=== PATIENT | male | born 1940 | race Caucasian/White ===

== ENCOUNTER 2017-03-23 16:26 | Emergency (ER) | payer MEDICARE, OTHER ==
[2017-03-23 16:36] VITALS: TEMP 98
--- NOTE | 2017-03-23 17:20 | ED ---
Fall HPI - General Chief Complaint: Fall Stated Complaint: Fall Time Seen by Provider: 03/23/17 17:06 Source: patient, EMS, RN notes reviewed Mode of arrival: EMS - History of Present Illness Initial Comments: Patient is 76-year-old male presents to the emergency room for evaluation fall injury. Patient has a history of advanced ALS. Patient's and nephew are present with patient. Patient's states that she left the house and came home to the EMS at her house. Patient tried to walk into the garage and fell hitting his head. Patient's states they were told this by their neighbors. Patient denies loss of consciousness. Patient denies headache. Patient denies shoulder pain, arm pain, chest pain, back pain, abdominal pain, hip pain, knee pain, leg pain, ankle pain. Patient only has pain at the laceration site on the right posterior parietal scalp. Patient denies nausea or vomiting. Patient denies shortness of breath. Patient's states patient is not on any blood thinners. Patient's states that patient is up- to-date on his tetanus vaccine. - Related Data Home Medications Medication Instructions Recorded Confirmed Citalopram Hydrobromide [CeleXA] 20 mg PEG/G-TUBE DAILY 03/23/17 03/23/17 Osmolite 1.5 Darrin 1,540.5 ml PEG/G-TUBE HS 03/23/17 03/23/17 Previous Rx's Medication Instructions Recorded ALPRAZolam [Xanax] 0.25 mg PEG/G-TUBE Q8HR PRN #14 10/26/16 tablet Allergies Allergy/AdvReac Type Severity Reaction Status Date / Time latex Allergy Rash/Hives Verified 03/23/17 17:23 nylon Allergy Reaction Verified 03/23/17 17:23 to nylon stitches ciprofloxacin [From Cipro] AdvReac Nausea & Verified 03/23/17 17:23 Vomiting & Diarrhea ciprofloxacin HCl AdvReac Nausea & Verified 03/23/17 17:23 [From Cipro] Vomiting & Diarrhea Review of Systems ROS Statement: Those systems with pertinent positive or pertinent negative responses have been documented in the HPI. ROS Other: All systems not noted in ROS Statement are negative. 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 skin cancer/issues - squamous and basal, back and facial. Hx kidney stones History of Any Multi-Drug Resistant Organisms: None Reported Past Surgical History: Tonsillectomy Additional Past Surgical History / Comment(s): 85% of stomach removed. hx lithotripsy x2,J tube placement at [facility] on . [address]. Past Anesthesia/Blood Transfusion Reactions: Blood Transfusion Reaction Additional Past Anesthesia/Blood Transfusion Reaction / Comment(s): Aug, reaction, stopped infusion and antihistamine given. No transfusions since. Past Psychological History: Anxiety Smoking Status: Former smoker Past Alcohol Use History: None Reported Additional Past Alcohol Use History / Comment(s): Heavy alcohol abuse destroyed stomach lining, does not drink anymore stopped in 1981. Past Drug Use History: None Reported - Past Family History Mother Family Medical History: No Reported History General Exam - General Exam Comments Initial Comments: Laying in exam room, no acute distress, c-collar on. Limitations: language barrier (Patient can only answer "yes" or "no"), physical limitation General appearance: alert, in no apparent distress Expanded Head exam: Present: laceration (2 cm laceration on right posterior parietal scalp). Absent: abrasion, contusion Eye exam: Present: normal appearance, PERRL, EOMI Pupils: Present: normal accommodation ENT exam: Present: normal exam, normal oropharynx, mucous membranes moist, TM's normal bilaterally, normal external ear exam Neck exam: Absent: normal inspection (c-collar on) Respiratory exam: Present: normal lung sounds bilaterally. Absent: respiratory distress Cardiovascular Exam: Present: regular rate, normal rhythm, normal heart sounds Extremities exam: Present: normal inspection Back exam: Present: normal inspection Neurological exam: Present: alert, oriented X3 Psychiatric exam: Present: normal affect, normal mood Skin exam: Present: warm, dry, intact, normal color. Absent: rash Course Vital Signs 03/23/17 03/23/17 16:28 17:36 Temperature 98 F Pulse Rate 63 65 Respiratory 16 18 Rate Blood Pressure 164/84 139/82 O2 Sat by Pulse 97 97 Oximetry Procedures - Laceration Laceration #1 Consent Obtained: verbal consent Indication: laceration Site: scalp Size (cm): 2 Description: linear Depth: simple, single layer Anesthetic Used: lidocaine 1% Anesthesia Technique: local infiltration Amount (mls): 2 Pre-repair: wound explored Type of Sutures: other (Sarmad) Number of Sutures: 4 Patient Tolerated Procedure: well, no complications Medical Decision Making - Medical Decision Making Patient is a 76-year-old male presents to the emergency room for evaluation of fall injury. Patient only complaining of scalp laceration. Brain and C-spine CT negative for any acute findings. Scalp laceration repaired with sarmad. Patient handled procedure well. Advised patient's have patient follow up with his primary care provider in 24-48 hours for reevaluation. Advised for patient to return in 10-12 days for staple removal. Patient's states she understands everything that was discussed with her. Return parameters discussed. Case discussed with Dr. John. - Radiology Data Radiology results: report reviewed, image reviewed Disposition Clinical Impression: Fall, Scalp laceration Disposition: HOME SELF-CARE Condition: Good Instructions: Fall Prevention for Older Adults (ED), Laceration (ED), Staple Care (ED) Additional Instructions: Please follow-up with primary care provider in 24-48 hours for reevaluation. Take Tylenol or Motrin as needed for pain. Please return in 10-12 days for staple removal. If any new symptom arises or symptoms worsen, return to ER as soon as possible. Referrals: Darshan Jo MD [Primary Care Provider] - 1-2 days Time of Disposition: 18:14
--- NOTE | 2017-03-23 17:46 | CT ---
EXAMINATION TYPE: CT brain [facility] DATE OF EXAM: 03/23/2017 5:38 PM COMPARISON: NONE HISTORY: Patient fell today and hit back of head. Patient has history of ALS. CT DLP: 1237.[address] of the brain was performed. The ventricles, basal cisterns and sulci overlying the cerebral convexities demonstrate enlargement. There is no evidence for intracranial hemorrhage or sulcal effacement. There is decreased attenuatio n about the periventricular white matter and deep white matter of both cerebral hemispheres, compatib le with chronic small vessel ischemia. No mass effects are seen. If symptoms persist consider MRI. Osseous calvarium is intact. Right parietal occipital scalp hematoma. IMPRESSION: 1. Age related atrophic and chronic small vessel ischemic change without acute intracranial process seen at this time. CT Cervical Spine: Unenhanced CT of the cervical spine was performed with bone and soft tissue window settings submitted . Coronal and sagittal reconstruction is obtained. There is normal alignment and prevertebral soft tissues. No evidence for acute cervical fracture . Scattered degenerative disc disease and spondylosis. Biapical scarring. IMPRESSION: 1. No evidence for acute fracture or subluxation of the cervical spine.
[2017-03-23 18:15] VITALS: BP 139/82; PULSE 65; RESP 18
== END 2017-03-23 18:29 | disposition home or self-care (01) ==
LOC: EC 16:26
DX: S01.01XA Laceration without foreign body of scalp, initial encounter (principal); F41.9 Anxiety disorder, unspecified; Z87.891 Personal history of nicotine dependence; Z79.899 Other long term (current) drug therapy; Z91.040 Latex allergy status; Z88.1 Allergy status to other antibiotic agents; W01.10XA Fall on same level from slipping, tripping and stumbling with subsequent striking against unspecified object, initial encounter; Y92.009 Unspecified place in unspecified non-institutional (private) residence as the place of occurrence of the external cause
CPT/HCPCS: 12001; 70450; 72125; 99284

== ENCOUNTER 2017-06-11 10:15 | Day surgery (SDC) | payer MEDICARE, OTHER ==
[2017-06-10 12:25] VITALS: BMI 19.6
[~2017-06-11 10:15] MED LIST: LACTATED RINGERS 1,000 ML IV SCH
[2017-06-11 10:34] VITALS: RESP 16; TEMP 98.9
[2017-06-11] MEDS ORDERED: LIDOCAINE 1% 20 ML VIAL (10MG/ML) FOR IV START SQ ONE (10:35)
--- NOTE | 2017-06-11 11:03 | P.GSHP ---
History of Present Illness H&P Date: 06/11/17 Chief Complaint: Malnutrition Patient here today for J-tube replacement. He has had troubles with his J-tube recently where the tip is breaking off and he is having leakage. It is been there for several months. Otherwise no complaints. Past Medical History Past Medical History: Cancer, GERD/Reflux, Musculoskeletal Disorder, Pneumonia Additional Past Medical History / Comment(s): CAN LONGER SPEAK AND HAS VERY LIMITED ARM MOVEMENT. 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 skin cancer/issues - squamous and basal, back and facial. Hx kidney stones History of Any Multi-Drug Resistant Organisms: None Reported Past Surgical History: Tonsillectomy Additional Past Surgical History / Comment(s): 85% of stomach removed. hx lithotripsy x2,J tube placement at [facility] on . [address]. Past Anesthesia/Blood Transfusion Reactions: Blood Transfusion Reaction Additional Past Anesthesia/Blood Transfusion Reaction / Comment(s): Aug, reaction, stopped infusion and antihistamine given. No transfusions since. Smoking Status: Former smoker - Past Family History Mother Family Medical History: No Reported History Medications and Allergies Home Medications Medication Instructions Recorded Confirmed Type Citalopram Hydrobromide [CeleXA] 20 mg PEG/G-TUBE DAILY 03/23/17 06/11/17 History Osmolite 1.5 Darrin 1,540.5 ml PEG/G-TUBE HS 03/23/17 06/11/17 History Allergies Allergy/AdvReac Type Severity Reaction Status Date / Time latex Allergy Rash/Hives Verified 06/11/17 10:34 nylon Allergy Reaction Verified 06/11/17 10:34 to nylon stitches ciprofloxacin [From Cipro] AdvReac Nausea & Verified 06/11/17 10:34 Vomiting & Diarrhea ciprofloxacin HCl AdvReac Nausea & Verified 06/11/17 10:34 [From Cipro] Vomiting & Diarrhea Surgical - Exam Vital Signs Temp Pulse Resp BP Pulse Ox 98.9 F 104 H 16 146/85 96 06/11/17 10:33 06/11/17 10:33 06/11/17 10:33 06/11/17 10:33 06/11/17 10:33 Physical exam: General: Well-developed, somewhat malnourished HEENT: Normocephalic, sclerae nonicteric Abdomen: Nontender, nondistended, J-tube left midabdomen Extremities: Edematous Neuro: Alert Assessment and Plan (1) Malnutrition Narrative/Plan: Will replace the patient's J-tube at this time. Status: Acute
--- NOTE | 2017-06-11 11:13 | P.PCN ---
Date of Procedure: 06/11/17 Preoperative Diagnosis: Postoperative Diagnosis: Procedure(s) Performed: PREOPERATIVE DIAGNOSIS: Malnutrition with malfunctioning J-tube POSTOPERATIVE DIAGNOSIS: Same PROCEDURE: J tube replacement SURGEON: Susy EBL: None ANESTHESIA: None COMPLICATIONS: None OPERATIVE PROCEDURE: Patient was placed in the supine position. The patient's old jejunostomy tube was removed. This was an 18-Mosotho ALEC balloon with 4 mL in the balloon. A new 18-Mosotho ALEC balloon J-tube was placed with a similar length of catheter beyond the tubing. The balloon was inflated with 4 mL. This was able to be advanced without meeting any resistance. DISPOSITION: Stable to recovery room Implants: Indications for Procedure: Operative Findings: Description of Procedure:
--- NOTE | 2017-06-11 12:05 | XR ---
Abdomen HISTORY: Jejunal tube placement Frontal view of the abdomen submitted following injection of 60 cc of Omnipaque 350. Comparison to previous exam 12/12/2015 Jejunal tube present in the left hemiabdomen just contrast within the tube and there is contrast with in the small bowel. No pneumoperitoneum or bowel obstruction evident. Lung bases show some possible b asilar atelectasis. Surgical clips present in the level of the left upper quadrant. IMPRESSION: Jejunal tube in appropriate position.
[2017-06-11 12:13] VITALS: BP 135/86; PULSE 95
== END 2017-06-11 12:30 | disposition home or self-care (01) ==
LOC: ORWHC2ENDO 10:15
PROVIDERS: ATTEND Surgery
DX: E46 Unspecified protein-calorie malnutrition (principal); K94.13 Enterostomy malfunction; G12.21 Amyotrophic lateral sclerosis; Z46.59 Encounter for fitting and adjustment of other gastrointestinal appliance and device; Z87.891 Personal history of nicotine dependence
CPT/HCPCS: 44373; 49451; 74000